=== PATIENT | female | born 1990 | race Caucasian/White ===

== ENCOUNTER 2024-04-24 07:17 | Outpatient (CLI) | payer OTHER, SELFPAY ==
[2024-04-24 07:35] VITALS: RESP 20; TEMP 36.7
[2024-04-24 07:37] VITALS: BP 133/87; PULSE 81
[2024-04-24 08:06] VITALS: BMI 40.0
[2024-04-24 08:22] LABS: ROM Internal Control Test YES-OK TO RESULT pt. (Internal QC)
[2024-04-24 08:23] LABS: ROM Patient Test POSITIVE (Negative); Record Kit Lot#, ROM+ K2871
--- NOTE | 2024-04-24 09:38 | NURSING ---
Spoke with patient regarding insurance coverage. Patient made aware that our hospital is out of network with her insurance and will not cover her care here. Patient aware that the expense of her care will be her responsibility. Self pay pricing discount discussed with her and her support people. Patient does not wish to continue care at this hospital and is requesting to be discharged to go to a hospital that is in network with her insurance. Primary RN will call patients physician to discuss this option.
--- NOTE | 2024-04-25 07:59 | OB.TRI.NOTE ---
HPI - General General Date of Admission: 04/24/24 Date of Service: 04/24/24 Chief Complaint: SROM HPI Narrative RUBÉN ARVIZU, is a 33 F who presents with SROM at home for clear fluid. No ctx, vb. Good FM. [facility] Home Medications ?Medication ?Instructions ?Recorded ?Last Taken ?Type acyclovir 400 mg tablet 400 mg PO TID 04/24/24 04/23/24 21:00 History 400 mg magnesium 200 mg tablet 400 mg PO DAILY 04/24/24 04/23/24 08:00 History 400 mg vit no.95-ferrous 1 tab PO DAILY 04/24/24 04/23/24 08:00 History fumarate 28 mg-folic acid 800 mcg 1 TAB tablet () sertraline 25 mg tablet (Zoloft) 25 mg PO DAILY 04/24/24 04/23/24 08:00 History 25 mg Allergy/AdvReac Type Severity Reaction Status Date / Time oxycodone (From Percocet) AdvReac Nausea Verified 04/24/24 07:43 History Addt'l History: History herpes outbreak in first trimester of . NST FHR Rate Baby A Baseline: 140 Variability:: Moderate Accelerations:: 15 x 15 Decelerations:: None NST Reactive:: Yes FHR Category:: Category I Assessment & Plan (1) 36 weeks gestation of : (2) SROM (spontaneous rupture of membranes): PLAN: ROM plus positive. Patient is comfortable, no regular ctx's, and cervix 1 cm. Plan was to admit patient for augmentation of labor. However [facility] is not covered under patient's insurance plan. Patient did not want to stay at [facility] given this. FHT reassuring and patient not laboring. Patient requested to drive to a [facility] facility for augmentation of labor.
== END 2024-04-24 10:05 | disposition home or self-care (01) ==
LOC: WPOUT 07:27 → WP 07:27
PROVIDERS: PCP Internal Medicine; Referring Provider Obstetrics & Gynecology; Visit Provider Obstetrics & Gynecology
DX: O42.913 Preterm premature rupture of membranes, unspecified as to length of time between rupture and onset of labor, third trimester (principal); Z3A.36 36 weeks gestation of pregnancy
CPT/HCPCS: 59025; 59050; 84112; 99221; G0378